=== PATIENT | female | born 1960 | race Caucasian/White ===

== ENCOUNTER → 2019-05-06 10:52 | Outpatient (CLI) | payer OTHER, SELFPAY ==
--- NOTE | ~2019-05-06 | MM_ITS ---
EXAMINATION: MM screening [facility] BI w ruthann HISTORY: Screening mammogram TECHNIQUE: Craniocaudal and mediolateral oblique 3-D tomosynthesis images were obtained and synthetic 2-D images were generated. CAD analysis was submitted and interpreted. COMPARISON: 01/13/2018, 04/17/2016, 03/30/2011 BREAST PARENCHYMAL COMPOSITION: There are scattered areas of fibroglandular density. FINDINGS: Scattered benign-appearing calcifications are present including stable calcifications with an adjacent biopsy marker in the left breast. There is no evidence of suspicious mass, calcification, or architectural distortion to suggest malignancy in either breast. There has been no suspicious int erval change. IMPRESSION: 1. No mammographic evidence of malignancy. 2. Recommend routine screening mammography in one year. BI-RADS Category 2: Benign finding(s). Reviewed, dictated and finalized at location A.
--- NOTE | ~2019-05-06 | DEXA_ITS ---
Bone Density Report Name: Ashley Catalan Age: 59 Sex: Female Ethnicity: White Date of : 1960 Indication: postmenopausal; screening for osteoporosis; Referring Provider: MIGNON, JOHANA Garza Study: Bone densitometry was performed. Exam Date: May 06, 2019 Accession number: [id number] Bone Density: Region BMD T-score Z-score Classification AP Spine (L1, L2, L4) 1.084 0.5 1.8 Normal Femoral Neck (Left) 0.853 0.0 1.3 Normal Total Hip (Left) 0.995 0.4 1.3 Normal Femoral Neck (Right) 0.848 0.0 1.2 Normal Total Hip (Right) 0.972 0.2 1.1 Normal Total Hip Mean 0.984 0.3 1.2 Normal World Health Organization criteria for BMD impression classify patients as: Normal (T-score at or above -1.0), Osteopenia (T-score between -1.0 and -2.5), or Osteoporosis (T-score at or below -2.5). 10-year Fracture Risk: FRAX not reported because: All T-scores for Spine Total, Hip Total, Femoral Neck at or above -1.0 Clinical Information Provided by Patient: Has used the following medications: Vitamin D, Calcium Patient maximum height was 62.5 Menopause Age: 49 Drinks caffeinated beverages Onset of menses at age 9 Number of children 0 Impression: The patient has normal bone mass. Discussion: BONE DENSITY IS ABOVE THE MINIMUM DESIRABLE LEVEL AT ALL SKELETAL SITES TESTED. This patient?s bone mineral density is above the minimum desirable level (T-score -1.0 or better) at all sites measured. The patient should follow a healthful lifestyle (good nutrition with adequate calcium and vitamin D, and appropriate weight-bearing exercise). Follow-Up: Consider repeating this study in 5 years or sooner if there is some new clinical indication. Reported by: [facility] on 05/06/2019 12:24:00 PM. Reviewed, dictated and finalized at location AArturo ROJAS
== END ==
PROVIDERS: PCP Internal Medicine; Visit Provider Obstetrics & Gynecology
DX: Z12.31 Encounter for screening mammogram for malignant neoplasm of breast (principal); Z13.820 Encounter for screening for osteoporosis; Z78.0 Asymptomatic menopausal state
CPT/HCPCS: 77063; 77067; 77080

== ENCOUNTER → 2019-08-29 10:10 | Outpatient (CLI) | payer OTHER, SELFPAY ==
--- NOTE | ~2019-08-29 | US_ITS ---
EXAMINATION: US pelvic complete w TV DATE: 08/29/2019 10:42 INDICATION: Postmenopausal bleeding TECHNIQUE: Multiple transabdominal and endovaginal sonographic images of the pelvis were obtained. COMPARISON: None. FINDINGS: The uterus measures 7.6 x 4.7 x 5.3 cm. There is a 2.1 x 1.8 cm isoechoic mass of the uteri ne fundus which has the appearance of a submucosal fibroid. A second similar appearing 1.9 x 1.8 cm m ass also has the appearance of a submucosal fibroid. The endometrial complex measures 6 mm. The right ovary measures 2.2 x 1.8 x 2.5 cm. The left ovary measures measures 3.0 x 1.9 x 2.1 cm. There is a 1 .8 x 1.5 x 1.4 cm isoechoic lesion of the left ovary. There is normal vascular flow in the ovaries. T here is no free fluid in the pelvis. IMPRESSION: 1. Uterine fibroids. 2. Isoechoic lesion of the left ovary which could represent a hemorrhagic cyst or endometrioma. Follo w-up ultrasound in 6-12 weeks is recommended. Reviewed, dictated and finalized at location A. IMPRESSION: 1. Uterine fibroids. 2. Isoechoic lesion of the left ovary which could represent a hemorrhagic cyst or endometrioma. Follow-up ultrasound in 6-12 weeks is recommended.
== END ==
PROVIDERS: PCP Internal Medicine; Visit Provider Obstetrics & Gynecology
DX: N95.0 Postmenopausal bleeding (principal); D25.9 Leiomyoma of uterus, unspecified
CPT/HCPCS: 76830; 76856

== ENCOUNTER → 2020-07-23 13:23 | Outpatient (CLI) | payer OTHER, SELFPAY ==
--- NOTE | ~2020-07-23 | MM_ITS ---
EXAMINATION: MM screening [facility] BI w ruthann HISTORY: Screening mammogram TECHNIQUE: Craniocaudal and mediolateral oblique 3-D tomosynthesis images were obtained and synthetic 2-D images were generated. CAD analysis was submitted and interpreted. COMPARISON: 05/06/2019, 01/13/2018, 04/17/2016 bilateral digital screening mammogram examinations BREAST PARENCHYMAL COMPOSITION: There are scattered areas of fibroglandular density. FINDINGS: There is a biopsy marker on the left; history of prior benign left breast biopsy in 2010. Multiple scattered bilateral benign appearing calcifications. There is no evidence of suspicious mass , calcification, or architectural distortion to suggest malignancy in either breast. There has been n o suspicious interval change. IMPRESSION: 1. No mammographic evidence of malignancy. 2. Recommend routine screening mammography in one year. BI-RADS Category 2: Benign finding(s). Reviewed, dictated and finalized at location A.
== END ==
PROVIDERS: PCP Internal Medicine; Visit Provider Obstetrics & Gynecology
DX: Z12.31 Encounter for screening mammogram for malignant neoplasm of breast (principal)
CPT/HCPCS: 77063; 77067

== ENCOUNTER → 2022-05-13 14:03 | Outpatient (CLI) | payer OTHER, SELFPAY ==
--- NOTE | ~2022-05-13 | MM_ITS ---
EXAMINATION: MM screening [facility] BI w ruthann HISTORY: Screening mammogram TECHNIQUE: Craniocaudal and mediolateral oblique 3-D tomosynthesis images were obtained and synthetic 2-D images were generated. CAD analysis was submitted and interpreted. COMPARISON: 07/23/2020, 05/06/2019, 01/13/2018 bilateral screening mammogram examinations BREAST PARENCHYMAL COMPOSITION: There are scattered areas of fibroglandular density. FINDINGS: Biopsy marker on the left. History of benign left breast biopsy. Scattered bilateral breast benign calcifications There is no evidence of suspicious mass, calcification, or architectural disto rtion to suggest malignancy in either breast. There has been no suspicious interval change. IMPRESSION: 1. No mammographic evidence of malignancy. 2. Recommend routine screening mammography in one year. BI-RADS Category 2: Benign finding(s). Reviewed, dictated and finalized at location A.
== END ==
PROVIDERS: PCP Internal Medicine; Visit Provider Physician Assistant
DX: Z12.31 Encounter for screening mammogram for malignant neoplasm of breast (principal)
CPT/HCPCS: 77063; 77067

== ENCOUNTER 2024-04-25 07:32 | Outpatient (CLI) | payer BC, SELFPAY ==
--- NOTE | ~2024-04-25 | MM_ITS ---
EXAMINATION: MM screening naldo BI w ruthann HISTORY: Screening mammogram TECHNIQUE: Craniocaudal and mediolateral oblique 3-D tomosynthesis images were obtained and synthetic 2-D images were generated. CAD analysis was submitted and interpreted. COMPARISON: 05/13/2022, 07/23/2020, 05/06/2019 BREAST PARENCHYMAL COMPOSITION:Not Dense. There are scattered areas of fibroglandular density. FINDINGS: Extensive bilateral benign calcifications are present. No suspicious mass, calcification, o r architectural distortion are identified in either breast to suggest malignancy. There has been no s uspicious interval change. IMPRESSION: No mammographic evidence of malignancy. Recommend routine screening mammography in one year. BI-RADS Category 2: Benign finding(s). Reviewed, dictated and finalized at location . 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
--- OUTSIDE RECORDS SUMMARY | 2024-04-25 07:37 | XMS_ITS | Referral Summary ---
Author Organization [facility] Address [address] [place] [id number] Care Team Providers Care Property Supervisor Name Role Phone Unknown, Notinfile Primary Care Provider Unavail able Allergies Active Allergy Reactions Criticality Noted Date Comments Amoxicillin Rash Medium 12/19/2023 Medications lidocaine (LIDODERM) 5 %Indications:Pa in Place 1 patch on the skin daily Use patch for 12 hours on, 12 hours off. Discard after each use 7 patch 12/19/2023 Active cyclobenzaprine (FLEXERIL) 10 mg tablet Take 1 tablet (10 mg total) by mouth 3 (three) times a day as needed for muscle spasms for up to 20 doses 20 tablet 12/19/2023 Active Social History Tobacco Use Types Packs/Day Years Used Date Smoking Tobacco: Never Assessed Personal Safety Answer Date Recorded Have you ever been in or are you currently in a harmful physical or emotional relationship or is someone making you feel afraid or unsafe? 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 Gender Identity Not on file Sexual Orientation Not on file Last Filed Vital Signs Vital Sign Reading Time Taken Comments Blood Pressure 110/62 12/19/2023 6:00 PM CDT Pulse 91 12/19/2023 6:00 PM CDT Temperature 36.9 C (98.4 F) 12/19/2023 1:19 PM CDT Respiratory Rate 16 12/19/2023 6:00 PM CDT Oxygen Saturation 92% 12/19/2023 6:00 PM CDT Inhaled Oxygen Concentration - - Weight 97 kg (213 lb 13.5 oz) 12/19/2023 1:19 PM CDT Height 157.5 cm (5' 2 ) 12/19/2023 1:19 PM CDT Body Mass Index 39.11 12/19/2023 1:19 PM CDT Plan of Treatment Not [place] [phone] [facility] [place] [phone] Care Teams Property Supervisor Relationship Specialty Start Date End Date Unknown, Notinfile PCP - General 12/19/23
--- OUTSIDE RECORDS SUMMARY | 2024-04-25 07:37 | XMS_ITS | Clinical Summary ---
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 Gender Identity Not on file Sexual Orientation [...] 12/19/2023 1:19 PM CDT Plan of Treatment Health Maintenance Due Date Last Done Comments Cervical Cancer Screening 1960 Colon Cancer Screening-Colonoscopy 1960 Depression Screening 1960 Hepatitis C Screening 1960 DTaP/Tdap/Td Vaccine (1 - Tdap) 01/31/1971 Hepatitis B Screening 01/31/1978 Regular Well Visit/Exam 18-64 01/31/1978 Zoster Vaccine (1 of 2) 01/31/2010 Breast Cancer Screening-Mammogram 05/15/2023 05/14/2022, 07/23/2020, 05/08/2019 Influenza Vaccine (#1) 2023 , 04/11/2018, 11/19/2016 Pneumococcal vaccine <65 Aged Out No longer eligible based on patient's age to complete this topic Insurance [facility] CHOICE PLUS MRA [address] [place] [address] Care Teams Infantry Senior Sergeant Relationship Specialty Start Date End Date Unknown, Notinfile PCP - General 12/19/23
--- OUTSIDE RECORDS SUMMARY | 2024-04-25 07:38 | XMS_ITS | Data Portability ---
Author Organization [facility] KIMJarret Lou Address [address] [place] [address] Care Team Providers Care Patient Registration Supervisor Name Role Phone FLORENCE PRITCHARD Geophysical Manager Unavailable Assessment Encounter Date Assessment Date Assessment LastModified by Organization Details LastModified Time 07/01/2020 07/01/2020 MIRIAN Sharma mwasserman Not available 07/01/2020 12:16:38 11/05/2021 11/05/2021 SARAH Thorne Not available 11/05/2021 13:48:19 Plan of Treatment Reminders Order Date Submit Date Provider Last Modified By Organization Details Last Modified Time Details Appointments None recorded . Lab noninvas yany colorect al cancer DNA + occult blood screenin g, stool 2020 021 [facility] (Cologuard Orders Only), [address], [address], [place], [address], 1 01:14:43 pap, IG + HPV, cervical - please use Z11.51 in addition to code above for HPV testing. 2019 020 [facility], [address], [address], [place], [address], 0 14:09:46 urinalys is, dipstick 2019 020 cherrie In-Office Order, Internal Use Only DO Not Attach Compendium DO Not Attach Compendium, Do Not Delete/merge, [id number] 0 10:50:50 culture, urine 2019 020 [facility], [address], [address], [place], [address], 0 06:23:17 bacteria l vaginosi s panel, vaginal 2019 020 [facility] (Centralized Electronic Ordering - All Locations), Patient Can Go To The Location Of Their Choice, [facility] 0 07:07:07 culture, vaginal/ rectal, streptoc occus group B 2019 020 [facility] (Centralized Electronic Ordering - All Locations), Patient Can Go To The Location Of Their Choice, [id number] 0 07:07:07 Referral None recorded . Procedures None recorded . Surgeries None recorded . Imaging MAMMO, screenin g, bilatera l 2021 022 [facility], [address], [place], [address], 3 10:48:15 MAMMO, screenin g, bilatera l 2020 021 [facility], [address], [place], [address], 1 16:56:32 DEXA 2020 021 [facility], [address], [place], [address], 1 11:42:40 US, pelvis, transabd ominal + transvag inal 2019 020 [facility], [address], [place], [address], 0 08:34:34 MAMMO, screenin g, bilatera l 2019 020 [facility], [address], [place], [address], 0 12:05:01 DEXA 2019 020 [facility], [address], [place], [address], 0 14:17:57 Medication Orders Premarin 0.625 mg/gram vaginal cream [address] [facility], [address] [place], [address], 3 16:28:57 Premarin 0.625 mg/gram vaginal cream 2021 022 [facility], [address] [place] [address], [id number], 2 12:21:30 multivit kuo tablet 2020 021 [facility], [address] [place], [address], 2 11:19:38 Calcium with Vitamin D 600 mg-10 mcg (400 unit) tablet 2020 021 [facility], [address] [place], [address], 2 11:21:03 Osphena 60 mg tablet [address] [facility], [address] [place], [address], 2 12:17:27 Premarin 0.625 mg/gram vaginal cream 2020 021 [facility], [address] [place] [address], [id number], 1 12:11:29 Osphena 60 mg tablet 2019 020 [email or web address], [address] [facility], [place], [address], 12:17:27 Patient TargetsNo targets recorded. Patient Instructions Encounter Date Encounter Id Patient Instructions Last Modified By Organization Details Last Modified Time 03/22/2019 [id number] mammogram: about this test mwasserman Not available 03/22/2019 10:50:50 mammogram: about this test mwasserman Not available 03/22/2019 10:50:49 mammogram screening patient instructions mwasserman Not available 03/22/2019 10:50:49 atrophic vaginitis: care instructions mwasserman Not available 03/22/2019 10:50:50 08/16/2019 [id number] Quitting Tobacco: Care Instructions mwasserman Not available 08/16/2019 17:17:55 vaginal bleeding after menopause: care instructions mwasserman Not available 08/16/2019 17:11:55 07/01/2020 [id number] mammogram: about this test mwasserman Not available 07/01/2020 11:52:55 mammogram screening patient instructions mwasserman Not available 07/01/2020 11:52:55 A healthy lifestyle: care instructions mwasserman Not available 07/01/2020 12:17:11 11/05/2021 [id number] learning about breast cancer screening Not available 11/05/2021 11:55:[address] Kacie mojica Not available 11/10/2021 17:15:43 Reason for Referral None Reported. Results Created Date Observation Date Name Description Value Unit Range Abnormal Flag Note LastModifiedBy Organization Detail LastModifiedTime 03/22/19 20 03/24/2019 cultu re, urine urine culture, routine Final report abnormal Not Available [facility] ([facility]) [address] [facility], [place], [address], 03/24/2019 06:23:17 03/22/19 20 03/24/2019 cultu re, urine result 1 Commen t abnormal Beta hemol ytic Strep tococ cus, group B 10,00 0-25, 000 colon y formi ng units per mL Penic illin and ampic illin are drugs of choic e for treat ment of beta- hemol ytic strep tococ sylvester infec tions . Susce ptibi lity testi ng of penic illin s and other beta- lacta m agent s appro constacne by the FDA for treat ment of beta- hemol ytic strep tococ sylvester infec tions need not be perfo rmed routi layla becau se nonsu scept ible isola angelique are extre darcy rare in any beta- hemol ytic strep tococ cus and have not been repor julia for Strep tococ cus pyoge chang (grou p A). (CLSI ) Not Available [facility] ([facility]) [address] [facility], [place], [address], 03/24/2019 06:23:17 03/22/19 20 03/23/2019 pap, IG + HPV, cervi sylvester HPV aptima Negati ve negati ve This nucle ic acid ampli ficat ion test detec ts fourt een high- risk HPV types (16,1 8,31, 33,35 ,39,4 5,51, 52,56 ,58,5 9,66, 68) witho ut diffe renti ation . Not Available [facility] ([facility]) [address] [facility], [place], [address], 03/24/2019 14:09:46 03/22/19 20 03/24/2019 pap, IG + HPV, cervi sylvester diagnosis: Commen t NEGAT YANY FOR INTRA EPITH ELIAL LESMAHAD Rankin OR ISSAC MARIN . Not Available [facility] ([facility]) [address] [place], [address], 03/24/2019 14:09:46 03/22/1903/24/2019 pap, IG + HPV, cervi sylvester specimen adequacy: Commen t Satis facto ry for evalu ation . Endoc ervic al and/o r squam ous metap lasti c cells (endo cervi sylvester compo nent) are prese nt. Areas of parti ally obscu ring infla mmato ry exuda te are prese nt. Not Available [facility] ([facility]) [address] [facility], [place], [address], 03/24/2019 14:09:46 03/22/19 20 03/24/2019 pap, IG + HPV, cervi sylvester clinician provided ICD10: Adrián elmore Z01.4 19 Z11.5 1 Not Available [facility] ([facility]) [address] [facility], [place], [address], 03/24/2019 14:09:46 03/22/19 20 03/24/2019 pap, IG + HPV, cervi sylvester performed by: Pamela Peterson (ASCP ) Not Available [facility] ([facility]) [address] [facility], [place], [address], 03/24/2019 14:09:46 03/22/19 20 03/24/2019 pap, IG + HPV, cervi sylvester . . Not Available [facility] ([facility]) [address] [place], [address], 03/24/2019 14:09:46 03/22/19 20 03/24/2019 pap, IG + HPV, cervi sylvester note: Adrián elmore The Pap smear is a scree bright test desig chaim to aid in the detec tion of rosio ligna nt and malig nant condi tions of the uteri ne cervi x. It is not a diagn ostic proce dure and shoul d not be used as the sole means of detec ting cervi sylvester cance r. Both false -posi tive and false -nega tive repor ts do occur . Not Available [facility] ([facility]) [address] [facility], [place], [address], 03/24/2019 14:09:46 03/22/19 20 03/24/2019 pap, IG + HPV, cervi sylvester test methodology: Adrián elmore This liqui d based ThinP rep(R ) pap test was scree chaim with the use of an image guide d tiara m. Not Available [facility] ([facility]) [address] [place], [address], 03/24/2019 14:09:46 03/22/19 20 03/26/2019 bacte rial vagin osis panel , vagin al trich vag by JOVANNY Negati ve negati ve Not Available [facility] ([facility]) [address] [place], [address], 03/27/2019 07:07:07 03/22/19 20 03/26/2019 bacte rial vagin osis panel , vagin al chlamydia trachomatis, JOVANNY Negati ve negati ve Not Available [facility] ([facility]) [address] [facility], [place], [address], 03/27/2019 07:07:07 03/22/19 20 03/26/2019 bacte rial vagin osis panel , vagin al neisseria gonorrhoeae, JOVANNY Negati ve negati ve Not Available [facility] ([facility]) [address] [place], [address], 03/27/2019 07:07:07 03/22/19 20 03/26/2019 bacte rial vagin osis panel , vagin al hsv 1 JOVANNY Negati ve negati ve Not Available [facility] ([facility]) [address] [place], [address], 03/27/2019 07:07:07 03/22/19 20 03/26/2019 bacte rial vagin osis panel , vagin al hsv 2 JOVANNY Negati ve negati ve Not Available [facility] ([facility]) [address] [place], [address], 03/27/2019 07:07:07 03/22/19 20 03/27/2019 bacte rial vagin osis panel , vagin al atopobium vaginae Low - 0 score Not Available [facility] ([facility]) [address] [facility], [place], [address], 03/27/2019 07:07:07 03/22/19 20 03/27/2019 bacte rial vagin osis panel , vagin al bvab 2 Low - 0 score Not Available [facility] ([facility]) [address] [facility], [place], [address], 03/27/2019 07:07:07 03/22/19 20 03/27/2019 bacte rial vagin osis panel , vagin al megasphaera 1 Low - 0 score Calcu late total score by deon dejesus the 3 indiv idual bacte rial vagin osis (BV) marke r score s toget her. Total score is inter prete d as follo ws: Total score 0-1: Indic ates the absen ce of BV. Total score 2: Indet ermin ate for BV. Addit ional clini sylvester data shoul d be evalu ated to estab raza a diagn osis. Total score 3-6: Indic ates the prese nce of BV. This test was devel oped and its perfo rmanc e teodoro cteri stics deter mined by [facility]. It has not been clear ed or appro constance by the Food and Drug Admin istra tion. The FDA has deter mined that such clear ance or appro anjana is not neces pierce. Not Available [facility] ([facility]) [address] [facility], [place], [address], 03/27/2019 07:07:07 03/22/1903/27/2019 bacte rial vagin osis panel , vagin al sugar albicans, JOVANNY Negati ve negati ve Not Available [facility] ([facility]) [address] [place], [address], 03/27/2019 07:07:07 03/22/19 20 03/27/2019 bacte rial vagin osis panel , vagin al sugar glabrata, JOVANNY Negati ve negati ve Not Available [facility] ([facility]) [address] [facility], [place], [address], 03/27/2019 07:07:07 03/22/19 20 03/24/2019 cultu re, vagin al/re ctal, strep tococ cus group B strep gp B JOVANNY Positi ve negati ve abnormal [facility] rs [facility] Disea se Contr ol and Preve ntion ([facility]) and Ameri can Congr ess of Obste trici ans and Gynec ologi sts (ACOG ) guide lines for preve ntion of perin atal group B strep tococ sylvester (GBS) disea se speci fy co-co llect ion of a vagin al and recta l swab speci men to maxim ize sensi tivit y of GBS detec tion. Per the [facility] and ACOG, swabb ing both the lower vagin a and rectu m subst antia lly incre ases the yield of detec tion hellen red with sampl ing the vagin a alone . Penic illin G, ampic illin , or cefaz katia are indic ated for intra partu m proph ylaxi s of perin atal GBS colon izati on. Refle x susce ptibi lity testi ng shoul d be perfo rmed prior to use of clind amyci n only on GBS isola angelique from penic illin -maine rgic women who are consi dered a high risk for anaph ylaxi s. Treat ment with vanco mycin witho ut addit ional testi ng is warra nted if resis tance to clind amyci n is noted . Not Available [facility] ([facility]) [address] [facility], [place], [address], 03/27/2019 07:07:07 03/22/19 20 03/22/2019 urina lysis , dipst ick Leukocytes Trace Not Available In-Offi ce Order Internal Use Only DO Not Attach Compendium DO Not Attach Compendium, Do Not Delete/merge, [id number] 03/22/2019 10:20:43 03/22/19 20 03/22/2019 urina lysis , dipst ick Nitrite negati ve Not Available In-Office Order Internal Use Only DO Not Attach Compendium DO Not Attach Compendium, Do Not Delete/merge, 03/22/2019 10:20:43 03/22/19 20 03/22/2019 urina lysis , dipst ick Urobilinogen .2 Not Available In-Of fice Order Internal Use Only DO Not Attach Compendium DO Not Attach Compendium, Do Not Delete/merge, 03/22/2019 10:20:43 03/22/1903/22/2019 urina lysis , dipst ick Protein Negati ve Not Available In-Office Order Internal Use Only DO Not Attach Compendium DO Not Attach Compendium, Do Not Delete/merge, 03/22/2019 10:20:43 03/22/1903/22/2019 urina lysis , dipst ick pH 5.5 Not Available In-Office Order Internal Use Only DO Not Attach Compendium DO Not Attach Compendium, Do Not Delete/merge, 03/22/2019 10:20:43 03/22/1903/22/2019 urina lysis , dipst ick Blood Negati ve Not Available In-Office Order Internal Use Only DO Not Attach Compendium DO Not Attach Compendium, Do Not Delete/merge, 03/22/2019 10:20:43 03/22/19 20 03/22/2019 urina lysis , dipst ick Specific [place] 1.015 Not Available In-Off ice Order Internal Use Only DO Not Attach Compendium DO Not Attach Compendium, Do Not Delete/merge, 03/22/2019 10:20:43 03/22/19 20 03/22/2019 urina lysis , dipst ick Ketone Negati ve Not Available In-Office Order Internal Use Only DO Not Attach Compendium DO Not Attach Compendium, Do Not Delete/merge, 03/22/2019 10:20:43 03/22/1903/22/2019 urina lysis , dipst ick Bilirubin Negati ve Not Available In-Office Order Internal Use Only DO Not Attach Compendium DO Not Attach Compendium, Do Not Delete/merge, 03/22/2019 10:20:43 03/22/1903/22/2019 urina lysis , dipst ick Glucose 500 Not Available In-Office Order Internal Use Only DO Not Attach Compendium DO Not Attach Compendium, Do Not Delete/merge, [id number] 03/22/2019 10:20:43 07/11/19 21 07/10/2020 nonin vasiv e color ectal cance r DNA + occul t blood scree bright, stool cologuard result reportable POSITI VE not applic able abnormal It is recom radha d that a posit yany Colog uard scree n be clini kieran corre lated and follo wed-u p with a struc tural exami natio n of the colon such as diagn ostic colon oscop y. Colon oscop ies perfo rmed for a posit yany Colog uard may find as the most clini kieran signi fican t lesio n: color ectal cance r [4.0% ], advan maximiliano adeno ma (incl uding sessi le [place] julia polyp s great er than or equal to 1cm diame ter) [20%] or non- advan maximiliano adeno ma [31%] ; or no color ectal neopl carmen [45%] . These estim ates are deriv ed from a prosp ectiv e cross -sect ional scree bright study of 10,00 0 indiv idual s at [facility] risk for color ectal cance r who were scree chaim with both Colog uard and colon oscop y. (Tabl e 3, Imper randall T. et al, N Engl J Med 2014; 370(1 4):12 86-12 97.) The michael l value (refe rence range ) for this assay is negat yany. TEST TYPE: [place] site algor ithmi c nelly sis of stool DNA-b iomar kers with hemog lobin immun oassa y. Quant itati ve value s of indiv idual bioma rkers are not repor table and are not assoc iated with indiv idual bioma rker resul t refer ence range s. PRECA UTION S AND LIMIT ATION S: Colog uard is inten ded for color ectal cance r scree bright of adult s of eithe r sex, 45 years or older , who are at [facility] for color ectal cance r (CRC) . Colog uard has been appro constance for use by the U.[place]. FDA. Colog uard may produ ce a false negat yany or false posit yayn resul t. A negat yany Colog uard test resul t does not guara ntee the absen ce of CRC or advan maximiliano adeno ma (pre- cance r). Patie nts with a negat yany Colog uard test resul t shoul d be advis ed to renetta nue parti cipat ing in a color ectal cance r scree bright progr am. The scree bright inter anjana for Colog uard is curre ntly recom radha d at an inter anjana of every 3 years by the Ameri can Cance r Socie ty and U.S. Multi -Soci ety Task Force . A false posit yany resul t occur s when Colog uard produ raji a posit yany resul t, even thoug h a colon oscop y may not find color ectal cance r or preca ncero us polyp s. The perfo rmanc e of Colog uard has been estab lishe d in a cross secti onal study (i.e. , singl e point in time) of [facility] adult s aged 50-84 . Colog uard perfo rmanc e in patie nts ages 45 to 49 years was estim ated by sub-g roup nelly sis of near- age group s. Colog uard perfo rmanc e data in a 10,00 0 [facility] nt pivot al study using colon oscop y as the refer ence metho d can be acces sed at the [employer] wing locat ion: www.e xactl abs.c om/re sults . Addit ional descr iptio n of the Colog uard test proce ss, warni ngs and preca ution s can be found at www.c [address] [facility].co m. Rx only. Not Available [facility] (Cologu[facility] Orders Only) [address], [place], [address], 07/17/2020 01:14:42 05/08/19 20 05/06/2019 MAMMO , scree bright, bilat eral No observ ation record ed. [facility] [address], [place], [address], 05/17/2019 20:26:22 05/12/19 20 05/06/2019 DEXA No observ ation record ed. robert [facility] [address], [place], [address], 09/08/2019 10:12:05 08/30/19 20 08/29/2019 US, pelvi s, trans abdom inal + trans vagin al No observ ation record ed. robert [facility] [address], [place], [address], 09/08/2019 14:35:59 11/03/19 20 10/30/2019 US, pelvi s No observ ation record ed. [email or web address] Not Available 11/05 09:50:36 07/24/19 21 07/23/2020 MAMMO , scree bright, bilat eral No observ ation record ed. [email or web address] [facility] [address], [place], [address], 11/05/2021 11:31:12 07/24/19 21 07/23/2020 MAMMO , scree bright, bilat eral No observ ation record ed. [email or web address] [facility] [address], [place], [address], 11/05/2021 11:31:12 05/15/19 23 05/13/2022 MAMMO , scree bright, bilat eral No observ ation record ed. [email or web address] [facility] [address], [place], [address], 05/20/2022 15:49:32 Result Notes None recorded. 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 0 11:16:34 Colorectal cancer detected by DNA-based stool screening 448503560 Active 2020 Crow byrnes, [facility] 1 08:08:33 Atrophic vaginitis 44554557 Active Gaurav byrnes, [facility] 6 12:58:43 Problem Notes None recorded. Procedures Surgical History Date Name Laterality Status Provider Name and Address Organization Details Recorded Time 1 Date of Last Mammogram completed Nila Phelps MA [facility] 11/05/2021 11:16:57 0 Most Recent Mammogram completed Nila Phelps MA [facility] 08/16/2019 17:06:24 0 Date of Last Pap Smear completed Nila Phelps MA [facility] 08/16/2019 17:06:11 Dilation and Curettage completed Nadira Costa MA [facility] 09/12/2015 15:16:42 Dilation and Curettage completed Nadira Costa MA [facility] 09/12/2015 15:16:42 Imaging Results Imaging Date Name Status LastModified by Organization Details LastModified Time 05/06/2019 MAMMO, screening, bilateral completed L[facility]I [facility] [address], [place], [address], 05/17/2019 20:26:22 05/06/2019 DEXA completed robert [facility] [address], [place], [address], 09/08/2019 10:12:05 08/29/2019 US, pelvis, transabdominal + [email or web address] [address], [place], [address], 09/08/2019 14:35:59 10/30/2019 US, pelvis completed Information no t available 11/06/2019 09:50:36 07/23/2020 MAMMO, screening, bilateral completed [email or web address] [facility] [address], [place], [address], 11/05/2021 11:31:12 07/23/2020 MAMMO, screening, bilateral completed [email or web address] [facility] [address], [place], [address], 11/05/2021 11:31:12 05/13/2022 MAMMO, screening, bilateral completed [email or web address] [facility] [address], [place], [address], 05/20/2022 15:49:32 Procedure Notes None recorded. Medical Equipment None Reported. Allergies Allergen ID Allergen Name Allergen Category Reaction Reaction Severity Criticality Documentation Date Start Date Code Code System Note Provider Name and Address Organization Details Recorded Time 25854 amoxicill in medicatio n itching moderate Not available 10/02/2014 723 RxNorm Not Available Not Available Not Available Medications Name Sig Start Date Stop Date Status Note LastModified by Organization Details LastModified Time trulicity 1.5 mg/0.5ml sopn 07/01 completed Not Available Not Available Not Available valacyclovi r hcl 1 gm tabs 07/01 completed Not Available Not Available Not Available metformin hydrochlori de 1000 mg tabs active Not Available Not Available Not Available glimepiride 4 mg tabs 07/01 completed Not Available Not Available Not Available lisinop/hct z tab 20-12.5 11/05 completed Not Available Not Available Not Available temazepam 15 mg caps active Not Available Not Available N ot Available osphena 60 mg tabs 11/05 completed Not Available Not Available Not Available escitalopra m oxalate 10 mg tabs 07/01 completed Not Available Not Available Not Available clonazepam 0.5 mg tabs 07/01 completed Not Available Not Available Not Available simvastatin 20 mg tabs 11/05 completed Not Available Not Available Not Available azithromyci n 250 mg tabs 08/15 completed Not Available Not Available Not Available multivitami n tablet Take 1 tablet every day by oral route. 11/05 completed Not Available Not Available Not Available metformin 500 mg tablet 08/15 completed Not Available Not Available Not Available doxycycline hyclate 100 mg capsule 11/05 completed Not Available Not Available Not Available atorvastati n 20 mg tablet active Not Available Not Available Not Available lisinopril 20 mg-hydrochl orothiazide 12.5 mg tablet TAKE 1 TABLET BY MOUTH ONCE DAILY active Not Available Not Available No t Available azithromyci n 250 mg tablet TAKE 2 TABLETS BY MOUTH ON DAY 1, AND THEN TAKE 1 TABLET BY MOUTH ONCE A DAY ON DAY 2 THROUGH DAY 5 11/05 completed Not Available Not Available Not Available fluconazole 150 mg tablet TAKE 1 TABLET BY MOUTH TWICE DAILY 11/05 completed Not Available Not Available Not Available benzonatate 200 mg capsule 08/15 completed Not Available Not Available Not Available valacyclovi r 1 gram tablet TAKE 1 TABLET BY MOUTH ONCE DAILY active Not Available Not Available No t Available clonazepam 0.5 mg tablet TAKE 1 TABLET BY MOUTH THREE TIMES DAILY NEEDED FOR ANXIETY active Not Available Not Available No t Available promethazin e 6.25 mg-codeine 10 mg/5 mL syrup 08/15 completed Not Available Not Available Not Available sulfamethox azole 800 mg-trimetho prim 160 mg tablet TAKE 1 TABLET BY MOUTH EVERY 12 HOURS FOR 5 DAYS 07/01 completed Not Available Not Available Not Available glimepiride 2 mg tablet 08/15 completed Not Available Not Available Not Available amitriptyli ne 25 mg tablet TAKE 1 TABLET BY MOUTH ONCE DAILY AT BEDTIME active Not Available Not Available No t Available temazepam 15 mg capsule TAKE 1 CAPSULE BY MOUTH ONCE DAILY AT BEDTIME active Not Available Not Available No t Available benzonatate 100 mg capsule 07/01 completed Not Available Not Available Not Available simvastatin 20 mg tablet TAKE 1 TABLET BY MOUTH ONCE DAILY 11/05 completed Not Available Not Available Not Available metformin 1,000 mg tablet TAKE 1 TABLET BY MOUTH TWICE DAILY active Not Available Not Available No t Available Alrex 0.2 % eye drops,suspe nsion 08/15 completed Not Available Not Available Not Available glimepiride 4 mg tablet TAKE 1 TABLET BY MOUTH TWICE DAILY active Not Available Not Available No t Available methylpredn isolone 4 mg tablets in a dose pack 08/15 completed Not Available Not Available Not Available ketoconazol e 2 % topical cream APPLY TO NAILS ONCE DAILY 11/05 completed Not Available Not Available Not Available ondansetron 4 mg disintegrat ing tablet 08/15 completed Not Available Not Available Not Available escitalopra m 10 mg tablet TAKE 1 TABLET BY MOUTH ONCE DAILY active Not Available Not Available No t Available Restasis 0.05 % eye drops in a dropperette 08/15 completed Not Available Not Available Not Available Premarin 0.625 mg/gram vaginal cream active Not Available Not Available Not Available Januvia 50 mg tablet TAKE 1 TABLET BY MOUTH ONCE DAILY active Not Available Not Available No t Available Calcium with Vitamin D 600 mg-10 mcg (400 unit) tablet Take 1 tablet twice a day by oral route. 11/05 completed Not Available Not Available Not Available Tradjenta 5 mg tablet TAKE 1 TABLET BY MOUTH ONCE DAILY active Not Available Not Available No t Available OneTouch Verio test strips 08/15 completed Not Available Not Available Not Available Invokana 100 mg tablet TAKE 1 TABLET BY MOUTH ONCE DAILY 11/05 completed Not Available Not Available Not Available Osphena 60 mg tablet TAKE 1 TABLET BY MOUTH ONCE DAILY 11/05 completed Not Available Not Available Not Available Farxiga 10 mg tablet TAKE 1 TABLET BY MOUTH ONCE DAILY 11/05 completed Not Available Not Available Not Available Jardiance 10 mg tablet TAKE 1 TABLET BY MOUTH ONCE DAILY 11/05 completed Not Available Not Available Not Available Trulicity 1.5 mg/0.5 mL subcutaneou s pen injector INJECT 1.5 MG SUBCUTANE OUSLY ONCE A WEEK 05/05 completed Not Available Not Available Not Available Trulicity 0.75 mg/0.5 mL subcutaneou s pen injector 08/15 completed Not Available Not Available Not Available Trulicity 3 mg/0.5 mL subcutaneou s pen injector INJECT 3 MG SUBCUTANE OUSLY ONCE A WEEK active Not Available Not Available No t Available Vitals Date Recorded Body weight Systolic blood pressure Diastolic blood pressure Provider Name and Address Organization Details Last Updated DateTime 03/22/2019 70176.29 g 130 mm[Hg] 74 mm[Hg] Glen Benavides MA [facility] 03/22/2019 10:20:12 Date Recorded Body height Body mass index (BMI) Body weight Provider Name and Address Organization Details Last Updated DateTime 08/16/2019 157.48 cm 34.2 kg/m2 56574.77 g Nila Phelps MA [facility] 08/16/2019 17:02:26 Date Recorded Body height Body mass index (BMI) Body weight Systolic blood pressure Diastolic blood pressure Provider Name and Address Organization Details Last Updated DateTime 07/01/2020 157.48 cm 34.8 kg/m2 37888.55 g 120 mm[Hg] 76 mm[Hg] Jeanine Burns MA [facility] 1 11:28:36 Date Recorded Body weight Body mass index (BMI) Body height Systolic blood pressure Diastolic blood pressure Provider Name and Address Organization Details Last Updated DateTime 11/05/2021 63995.96 g 35.1 kg/m2 156.21 cm 118 mm[Hg] 66 mm[Hg] Nila Phelps MA [facility] 2 11:23:46 Date Recorded Body height Body mass index (BMI) Body weight Systolic blood pressure Diastolic blood pressure Provider Name and Address Organization Details Last Updated DateTime 05/05/2022 156.21 cm 35.9 kg/m2 77785.33 g 126 mm[Hg] 74 mm[Hg] Nila Phelps MA [facility] 3 16:14:19 Social History Question Answer Notes LastModified by Organizat ion Details LastModified Time Tobacco Smoking Status Former Smoker Nadira Costa MA null, [facility] 09/12/2015 15:16:42 Do You Have An Advance Directive? [email or web address] [id number] Information not available 09/12/2015 What Is Your Level Of Alcohol Consumption? None [email or web address] Information not available 09/12/2015 Is Blood Transfusion Acceptable In An Emergency? Yes [facility] Information not available 09/12/2015 What Is Your Level Of Caffeine Consumption? Heavy Mountain Dew [email or web address] Information not available 07/01/2020 How Much Tobacco Do You Chew? None Information not available 09/12/2015 In The 14 Days Before Symptom Onset, Have You Had Close Contact With A Laboratory-confi rmed COVID-19 While That Case Was Ill? No Information not available 07/01/2020 In The 14 Days Before Symptom Onset, Have You Had Close Contact With A Person Who Is Under Investigation For COVID-19 While That Person Was Ill? No Information not available 07/01/2020 Have You Been To An Area Known To Be High Risk For COVID-19? No Information not available 07/01/2020 Are You Currently Employed? Yes Information not available 09/12/2015 What Type Of Diet Are You Following? REGULAR Information not available 09/12/2015 Do You Or Have You Ever Used E-cigarettes Or Vape? Never Used Electronic Cigarettes Information not available 03/22/2019 Education 12 Information no t available 09/12/2015 What Is The Highest Grade Or Level Of School You Have Completed Or The Highest Degree You Have Received? [id number] Information not available 07/01/2020 What Is Your Occupation? [employer] Information not available 07/01/2020 Have There Been Any Changes To Your Family Or Social Situation? No Information not available 07/01/2020 Live Alone Or With Others? With Others Information not available 09/12/2015 What Was The Date Of Your Most Recent Tobacco Screening? 05/05/2022 Information not available 05/05/2022 How Many Children Do You Have? 0 Information not available 09/12/2015 Performs Monthly Self-breast Exam? Yes Information not available 09/12/2015 Do You Have Any Pets? No Information not available 07/01/2020 Do You Use Protection During Sex? No Information not available 09/12/2015 What Is Your Relationship Status? Information not available 09/12/2015 Do You Use Your Seat Belt Or Car Seat Routinely? Yes Information not available 07/01/2020 Seat Belts Used Routinely Yes Information not available 09/12/2015 Are You Sexually Active? Yes Information not available 09/12/2015 Do You Have Smoke And Carbon Monoxide Detectors In Your Home? Yes Information not available 07/01/2020 At What Age Did You Start Smoking Tobacco? 30 Information not available 09/12/2015 Are You Passively Exposed To Smoke? No Information not available 07/01/2020 Do You Or Have You Ever Used Smokeless Tobacco? Never Used Smokeless Tobacco Information not available 03/22/2019 How Much Tobacco Do You Smoke? 1 PPD Information not available 09/12/2015 General Stress Level Low Information not available 09/12/2015 Do You Use Any Illicit Or Recreational Drugs? No Information not available 07/01/2020 Do You Use Sunscreen Routinely? Yes Information not available 09/12/2015 Has Tobacco Cessation Counseling Been Provided? Yes Information not available 05/05/2022 On What Date Was Tobacco Cessation Counseling Provided? 05/05/2022 Information not available 05/05/2022 How Many Years Have You Smoked Tobacco? 20 Information not available 09/12/2015 Do You Or Have You Ever Used Any Other Forms Of Tobacco Or Nicotine? No Information not available 11/05/2021 Sex: Female Functional Status Question Answer Note LastModified by Organization D etails LastModified Time What is your exercise level? Moderate Information not available 09/12/2015 Mental Status None recorded. Family History Relationship Description Onset Age of this Age Resolved Age Notes LastModified by Organization Details LastModified Time Father Diabetes mellitus Not available 2015 15:16:42 Father Heart disease Not available 2015 15:16:42 Father Hypercholest erolemia Not available 2015 15:16:42 Father Hypertensive disorder Not available 2015 15:16:42 Father Migraine Not available 09/12/2015 15:16:42 Medical History Condition Response High Blood Pressure Y Kidney or Bladder Problems N Thyroid Problems N GI Problems Y Headaches/Migraines N Diabetes Y Muscle, Joint, or Bone Problems Y Seizures/Epilepsy Acid Reflux (GERD) Y High Cholesterol Y Hepatitis N Heart Disease N Osteoporosis N Gynecological History Statement/Question Response Abnormal Pap N Date of Last Mammogram 10/23/2020 On BCP's at Conception? N STIs/STDs Y HPV Vaccine N Most Recent Mammogram 05/06/2019 Age at Menarche 9 Current Control Method Menopause If Post Menopausal, Age at Menopause 52 Sexually Active? Y Menses Monthly N Date of Last Pap Smear 03/22/2019 Sexual Problems? Y Desired Control Method None Obstetrics History GPAL:G 2 P 0 0 2 0 Type Value Multiple Births 0 Full Term 0 Induced 0 Spontaneous 2 Premature 0 Living 0 Ectopics 0 Total 2 Past Encounters Encounter ID Performer Location Encounter Start Date Encounter Closed Date Diagnosis/Indication Diagnosis SNOMED-CT Code Diagnosis ICD10 Code Diagnosis Note [id number] WENDY Hope (Adult Med) [address] [place] [address] 0 09/05/2015 10:54:26 09/05/2015 14:13:23 Atrophic vaginitis 60549955 N95.2 Will re-prescri be medication that Dr. Terrell had prescribed Advised to f/u with Dr. Terrell in 6-8 weeks to discuss if medication is working Discussed risk of unopposed estrogen with patient [id number] Gaurav Macdonald (INCOMING INSPECTOR) [address] [place] [address] 0 09/12/2015 14:50:07 09/16/2015 11:10:34 Atrophic vaginitis 08658027 N95.2 Patient was prescribed Premarin and Osphena by Gracy Hurley. Patient has already had them filled. Advise starting the medication s as prescribed . Follow up in 1 month. [id number] Gaurav Macdonald (INCOMING INSPECTOR) [address] [place] [address] 0 10/25/2015 11:12:26 10/25/2015 14:21:52 Atrophic vaginitis 37371102 N95.2 Patient was prescribed Premarin and Osphena by Gracy Hurley. Patient has already had them filled. Advise starting the medication s as prescribed . Follow up in 1 month. [id number] Crow Macdonald [facility] (INCOMING INSPECTOR) [address] [place] [address] [id number] 0 03/22/2019 09:34:56 03/23/2019 11:16:11 Gynecologic examination 16704469 Z01.419 Atrophic vaginitis 56061 000 N95.2 Screening for osteoporosis 584000617 Z13.820 Screening mammography 24 930776 Z12.31 Exposure t o sexually transmissible disorder 072076542 Z20.2 [id number] Crow Macdonald (INCOMING INSPECTOR) [address] [place] [id number] 0 08/16/2019 09:54:04 08/17/2019 08:50:47 Postmenopausal bleeding 16356070 N95.0 Smoker 34297386 F17.120 [id number] Crow Xander Macdonald (INCOMING INSPECTOR) [address] [place] [address] [id number] 0 07/01/2020 10:49:14 07/08/2020 18:38:45 Gynecologic examination 47215592 Z01.419 Z11.51 Screening mammography 24 207354 Z12.31 Last mammogram in 04/2019 was normal. No family history of breast cancer. Postmenopausal state 764 17413 Z78.0 Screening for malignant neoplasm of colon 864589193 Z12.11 Colonoscop y completed several years ago and normal. No family history of colorectal cancer. 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 Repeat 2024- Breast screening: Last mamm 07/23/20 BIRADS 2. Discussed SBE- Colon screening: Pt states that her last colonoscop y was last year with polyp removal. Her next colonoscop y was to be scheduled in 5 years.- Diet/exerc ise: Counseled regarding importance of physical activity, healthy diet and appropriat e calcium / vitamin D intake.- Return to clinic in six months Atrophic vaginitis 94442 000 N95.2 -Currently taking Osphena x 5-7 years with little relief from vaginal dryness and dyspareuni a-Pt declined pelvic exam today-Stop ped Osphena and started Premarin cream-Coun seled on using Replens vaginal moisturize r and coconut oil- Return to clinic in six months or sooner if needed [id number] BOO HOYT (INCOMING INSPECTOR) [address] [place] [address] [id number] 0 05/05/2022 15:59:53 05/07/2022 13:12:46 Atrophic vaginitis 09311068 N95.2 Recently started Premarin cream with improvemen t in vaginal dryness, continue as prescribed . RTC prn. Health Concerns Section Related Observation LastModified by Organization Detai ls LastModified Time None Recorded Concern Status LastModified by Organization Details LastModified Time None Recorded Advance Directives Directive N: Payers Encounter Date Sequence Insurance Name Policy Number Policy Wills Covered Member ID Wills Member ID Guarantor Name 03/22/2019 1 [facility] [id number] Ashley A Phegley [id number] Ashley Phegley 08/16/2019 1 [facility] [id number] Ashley A Phegley [id number] Ashley Phegley 07/01/2020 1 [facility] [id number] Ashley A Phegley [id number] Ashley Phegley 11/05/2021 1 [employer] [id number] Ashley A Phegley [id number] Ashley Phegley 05/05/2022 1 [facility] Ashley Phegley [id number] Ashley Phegley Notes Date Note Type Note Provider Name and Address Organization Details Recorded Time 03/22/2019 text/html Annual GYNReport ed bypatient.Urinary symptoms:No hematuria; No incontinence Vulva:No genital lesion Vagina:Normal vaginal discharge Breast:No breast pain; No breast lump; No nipple discharge Sexual complaints:No sexual complaints; No pain during intercourse; Normal libido Menopausal Symptoms:No menopausal symptoms;Inadequac y of lubrication of vaginal mucosa Psychological symptoms:No depression; No anxiety; No PMDDPelvic PainReported bypatient.Location :right; lower abdominal Onset/Timin-2 months; sudden; intermittent episodes lasting: (10-15 minutes) Duration:intermitt ent Quality:sharp; stabbing Severity:moderate Context:postmenopa usal Alleviating Factors:NSAIDS Aggravating Factors:none Associated Symptoms:no back pain; no chills; no constipation; no diarrhea; no vaginal discharge; no pain with urination; normal emptying of bladder; no feelings of urgency; no blood in the urine; normal libido; no fever; no nausea; no vomiting; no nocturia; no sexual abuse; no ectopic pregnancies; no endometriosis; no urinary frequency; no vaginal itching or irritation; no dyspareunia;abdomi nal pain 59yo 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 Patient states she has been experiencing vaginal dryness with some relief with OTC product and experiencing right lower quadrant x 1 month. 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 MICHAEL Huynh 08/16/2019 17:18:16 07/01/2020 text/html 60-year-old fembreanne del toro presents for annual WWE. MICHAEL Huynh 07/01/2020 16:44:42 07/01/2020 text/html Annual GYNReport ed bypatient.Menstrua l cycle:postmenopaus al Urinary symptoms:No hematuria; No incontinence Vulva:No genital lesion Vagina:Normal vaginal discharge Breast:No breast pain; No breast lump; No nipple discharge Sexual complaints:No sexual complaints; No pain during intercourse; Normal libido Menopausal Symptoms:No menopausal symptoms;Inadequac y of lubrication of vaginal mucosa(vaginal dryness) Psychological symptoms:No depression; No anxiety; No PMDD Crow Terrell [facility], [facility] 07/01/2020 16:44:42 11/05/2021 text/html Ashley Catalan is a 61 year-old with HTN, DM type 2, HLD (previous pt of Dr. Terrell) who presents for an annual well women exam with complaints of chronic vaginal dryness and dyspareunia. Pt states that she is currently taking Osphena for 5-7 years that provides little relief. She has tried Premarin very infrequently. Uses [place] Jelly during intercourse. She continues that she has suffered from both symptoms for years. Pt states that her last pap exam was ~2 years ago and was found normal. She needs to schedule for her mammogram to be done in [place]. Her last mammogram was last year. She had a prior abnormal mammogram that ended with a left breast biopsy diagnosis of a calcium deposit. Pt admits to have a colonoscopy last year with a polyp finding. Her next colonoscopy will be in five years. She is sexually active with . Denies discharge, abnormal bleeding, fevers, chills, weight loss, urinary symptoms, changes in BMs. Jonnathan Hester MD Attn: Accounting[address] [place], [address], [facility] 11/10/2021 17:15:47 05/05/2022 text/html 62yo F presents for atrophic vaginitis follow up. She was started on Premarin cream six months ago and notes improvement in vaginal dryness. She has no SE from medication. Denies abnormal bleeding, pelvic pain, urinary symptoms, vaginal itching, discharge, LE edema, CP, SOB, palpitations, headaches, vision changes. BOO HOYT Attn: [address]ing[address] [place], [address], [facility] 05/05/2022 16:45:37 OBGyn Episode No OBEpisode recorded.
--- OUTSIDE RECORDS SUMMARY | 2024-04-25 07:38 | XMS_ITS | CONTINUITY OF CARE DOCUMENT ---
Author Name lizz zamudio Address Unknown Organization [facility] Address [address] [place] [address] Phone [phone] Care Team Providers Care Scrap Handler Name Role Phone Jericho Sanz MD Unavailable [phone] KIAN ROBERT MD Unavailable [phone] KIAN ROBERT MD Unavailable [phone] INSURANCE PROVID[employer] Payer name Policy type / Coverage type [place] [employer] ID [employer] Other [id number]
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
--- OUTSIDE RECORDS SUMMARY | 2024-04-25 07:38 | XMS_ITS | Clinical Summary ---
Author Organization [facility] Address [address], [facility] [address] [place] [address] Phone Care Team Providers Care Termite Control Representative Name Role Phone Maninder Ann MD Primary Care Provider [phone] Toñito Sheriff MD Unavailable [phone] Allergies Active Allergy Reactions Criticality Noted Date Comments Amoxicillin Rash 03/22/2023 Empagliflozin Nausea 03/22/2023 Levofloxacin Nausea 03/22/2023 Medications glimepiride (AMARYL) 4 MG Tablet Take 4 mg by mouth 2 times daily. 3 Active metFORMIN (GLUCOPHAGE) 1000 MG Tablet Take 1,000 mg by mouth 2 times daily. 3 Active atorvastatin (LIPITOR) 20 MG Tablet Take 20 mg by mouth daily. 3 Active lisinopril-hyd roCHLOROthiazi de (PRINZIDE, ZESTORETIC) 20-12.5 MG Tablet Take 1 Tablet by mouth daily. 3 Active escitalopram (LEXAPRO) 10 MG Tablet Take 10 mg by mouth daily. 3 Active Trulicity 3 MG/0.5ML Solution Pen-injector INJECT 1 SYRINGE SUBCUTANEOUSLY ONCE A WEEK 3 Active temazepam (RESTORIL) 15 MG Capsule 3 Active Tradjenta 5 MG Tablet Take 5 mg by mouth daily. 3 Active amitriptyline (ELAVIL) 25 MG Tablet TAKE 1 TABLET BY MOUTH ONCE DAILY AT BEDTIME 3 Active FeroSul 325 (65 Fe) MG Tablet TAKE 1 TABLET BY MOUTH TWICE DAILY WITH VITAMIN C 3 Active clonazePAM (KlonoPIN) 0.5 MG Tablet Take 0.5 mg by mouth 3 times daily. Active Calcium Carbonate (CALCIUM 500 PO) Take by mouth. Activ e Collagen-Vitam in C-Biotin (COLLAGEN 1500/C PO) Take by mouth. Acti ve other by Other route. Vitafusion Active Estrogens Conjugated (PREMARIN PO) Take by mouth twice a week. Active Ascorbic Acid (VITAMIN C PO) Take by mouth. Active BIOTIN FORTE PO Take by mouth. Activ e valACYclovir (VALTREX) 1 GM Tablet Take 1 Tablet by mouth daily. Active simvastatin (ZOCOR) 20 MG Tablet Take 1 Tablet by mouth daily. Active Estrogens Conjugated (Premarin) 0.625 MG/GM Cream insert 0.5grams vaginally twice a WEEK Active Active Problems Problem Noted Date Diagnosed Date Iron deficiency anemia, unspecified 03/11/2023 Anemia due to unknown mechanism 03/08/2023 Immunizations Immunization Administration Dates Next Due Influenza Vaccine, Quadrivalent, PF 01/24/2020,0 11/19/2016 Influenza, Injectable, Mdck, quadrivalent,with Preservative 04/11/2018 Family History Medical History Relation Name Comments Stroke Brother Congestive Heart Failure Father Diabetes Father Heart Disease Father Hypertension Father Relation Name Status Comments Brother Father Social History Tobacco Use Types Packs/Day Years Used Date Smoking Tobacco: Former Cigarettes Q uit: 2016 Smokeless Tobacco: Never Tobacco Cessation:Counseling Given: Not Answered Alcohol Use Standard Drinks/Week Comments Never 0 (1 standard drink = 0.6 oz pur e alcohol) Comments Unknown Sex and Gender Information Value Date Recorded Sex Assigned at Not on file 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 Gender Identity Not on file Sexual Orientation Not on file Last Filed Vital Signs Vital Sign Reading Time Taken Comments Blood Pressure 138/80 07/21/2023 1:55 PM CDT Pulse 88 07/21/2023 1:55 PM CDT Temperature 36.6 C (97.8 F) 07/12/2023 9:25 AM CDT Respiratory Rate 18 07/12/2023 9:25 AM CDT Oxygen Saturation 95% 07/21/2023 1:55 PM CDT Inhaled Oxygen Concentration - - Weight 89.1 kg (196 lb 6.4 oz) 07/12/2023 9:25 A M CDT Height 157.5 cm (5' 2 ) 07/12/2023 9:25 AM CDT Body Mass Index 35.92 07/12/2023 9:25 AM CDT Plan of Treatment Upcoming Encounters Date Type Department Care Team (Late st Contact Info) Description 05/11/2024 1:15 PM CDT Office Visit [facility] [address] [address] Toñito Sheriff MD [address] [place] [address] Health Maintenance Due Date Last Done Comments Hepatitis C Virus (HCV) Screening 1960 Mammogram 1960 TdaP Immunization 1960 Pap Smear 01/31/1981 Cervical Cancer Screening (CCS) 01/31/1990 HPV/Cotest 01/31/1990 Colonoscopy 01/31/2005 Colorectal Cancer Screening 01/31/2005 Cologuard 01/31/2010 Immunochemical Fecal Occult Blood 01/31/2010 Pneumococcal Immunization (5 0+ years) (1 of 1 - PCV) 01/31/2010 Zoster Immunization (1 of 2) 01/31/2010 Influenza Immunization (#1) 10/31/202312/31, 04/11/2018, 11/19/2016 SARS-COV-2 Immunization ( - 2023-25 season) 2023 Respiratory Syncytial Virus (RSV) Immunization (Adult) (1 - 1-dose 75+ series) 01/31/2035 Hepatitis B Immunization Aged Out No longer eligible based on patient's age to complete this topic Meningococcal Immunization (ACWY) Aged Out No longer eligible b ased on patient's age to complete this topic Pneumococcal Immunization Combined Aged Out No longer eligible b ased on patient's age to complete this topic Rotavirus Immunization Aged Out No lo nger eligible based on patient's age to complete this topic Insurance [facility] Care Teams Termite Control Representative Relationship Specialty Start Date End Date Maninder Ann MD [address] [facility] [address] [place] [address] PCP - General Internal Medicine 01/18/23 Toñito Sheriff MD [address] [place] [address] Consulting Physician Oncology 01/18/23
== END 2024-04-25 07:33 | disposition home or self-care (01) ==
LOC: ANHIMG 07:34
PROVIDERS: PCP Internal Medicine; Visit Provider Internal Medicine
DX: Z12.31 Encounter for screening mammogram for malignant neoplasm of breast (principal)
CPT/HCPCS: 77063; 77067

== ENCOUNTER 2024-05-05 08:03 | Emergency (ER) | payer BC, SELFPAY ==
--- NOTE | 2024-05-05 08:07 | ED.URI ---
HPI - URI/Sore Throat General Chief Complaint: Upper Respiratory Infection Stated Complaint: cough,sore throat Time Seen by Provider: 05/05/24 08:06 Source: patient Mode of arrival: ambulatory Limitations: no limitations History of Present Illness HPI Narrative: Ashley is a 64-year-old female patient presenting to the clinic today with complaints of cough runny nose, nasal drainage, and sore throat x5 days. She reports no known fevers, chills, body aches. Has been coughing so hard that is making her ribs hurt. Is bringing up some white phlegm. She is a nonsmoker. She denies any shortness of breath. MD elicited complaint: sore throat and nasal congestion Related Data Home Medications ?Medication ?Instructions ?Recorded ?Confirmed ?Last Taken ?Type dulaglutide 1.5 mg/0.5 mL 1.5 mg subcut WEEKLY 02/05/20 05/05/24 Unknown History subcutaneous pen injector (Trulicity) escitalopram oxalate 10 mg tablet 10 mg PO DAILY 02/05/20 05/05/24 Unknown History glimepiride 4 mg tablet 4 mg PO QAM 02/05/20 05/05/24 Unknown History lisinopril 20 mg tablet 20 mg PO DAILY 02/05/20 05/05/24 Unknown History metformin 1,000 mg tablet 1,000 mg PO DAILY 02/05/20 05/05/24 Unknown History simvastatin 20 mg tablet 20 mg PO DAILY 02/05/20 05/05/24 Unknown History linagliptin 5 mg tablet (Tradjenta) 5 mg PO QAM 07/06/22 05/05/24 Unknown History temazepam 15 mg capsule 15 mg PO QHS 07/06/22 05/05/24 Unknown History amitriptyline 25 mg tablet 25 mg PO DAILY 05/05/24 05/05/24 Unknown History atorvastatin 20 mg tablet 20 mg PO QPM 05/05/24 05/05/24 Unknown History ferrous sulfate 325 mg (65 mg 325 mg PO BID 05/05/24 05/05/24 Unknown History iron) tablet (FeroSul) lisinopril 20 1 tablet PO DAILY 05/05/24 05/05/24 Unknown History mg-hydrochlorothiazide 12.5 mg tablet semaglutide 2 mg/dose (8 mg/3 mL) 2 mg subcut WEEKLY 05/05/24 05/05/24 Unknown History subcutaneous pen injector (Ozempic) Allergies Allergy/AdvReac Type Severity Reaction Status Date / Time Penicillins Allergy Mild Unknown Verified 05/05/24 08:08 amoxicillin Allergy Unknown Unknown Verified 05/05/24 08:08 Review of Systems Review of Systems: Pertinent positives per HPI. Patient denies any fever, chills, rash, headache, visual changes, dizziness, shortness of breath, chest pain, palpitations, nausea, vomiting, diarrhea, constipation, abdominal pain, or any urinary issues. [facility] Past Medical History Medical History Latent autoimmune diabetes in adults, managed as type 2 Abdominal pain Nausea Chronic cough Chest congestion Vision abnormalities De Quervain's disease (radial styloid tenosynovitis) Right wrist pain Anxiety Diabetes Diarrhea Constipation Stomach pain Hypertension High cholesterol Bleeding nose Vertigo Vision changes Dizziness Chronic headaches Right hip pain Family History Family History Father Diabetes mellitus Family history of cardiovascular disease Unknown HLD (hyperlipidemia) Arthritis Social History Social History Smoking status: Former smoker Smoking end date: 03/01/09 Alcohol intake: never Occupation/Education: occupation Additional occupation/education comments: 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 There is no relevant family history pertinent to the patient complaint. Exam Narrative: General: Well-developed, well nourished, in no apparent distress Head: Normocephalic, atraumatic Eyes: Pupils equally round and reactive to light bilaterally, EOM intact, sclera and conjunctive clear, no discharge, lids normal Ears: TMs intact and clear, ear canals clear, no drainage, grossly hearing normal. Nose: Nares patent, clear nasal discharge, no inflammation, no sinus tenderness. Mouth: Oral pharynx without lesions or masses, good dentition, MMM. Postnasal drip Neck: Supple, trachea midline, no enlargement of anterior or posterior cervical nodes, no thyroid masses or goiter palpable. Cardio: Regular rate and rhythm, s1 and s2 normal, no murmur appreciated. Resp: Clear to auscultation bilaterally, no rhonchi, rales, wheezing or rubs Course Course Emergency Course: Portions of this record may have been created with voice recognition software. Level of Care: Express Care Visit Vital Signs Vital signs: Vital signs reviewed MDM - URI/Sore Throat MDM Narrative Medical decision making narrative: At the time of visit patient is resting comfortably on the exam table. Patient appears to be nontoxic. Plan: Offer to do COVID testing on the patient she declined at this time. I suspect patient has URI with cough and congestion. Will place the patient on prednisone and Tessalon Perles. Supportive measures were discussed with the patient and they voiced understanding discharge instructions and agrees to treatment plan. Return precautions reviewed Differential Diagnosis Differential diagnosis: Likely upper respiratory infection, otitis media, sinusitis, viral infection, bronchitis, influenza, pharyngitis and other (COVID) Discharge Plan Discharge Clinical Impression: Upper respiratory infection with cough and congestion Patient Disposition: Home, Self-Care Condition: Stable Instructions: Antibiotic Form, Upper Respiratory Infection (ED) Additional Instructions: Take prescription medications only as prescribed-prednisone and Tessalon Perles The prednisone increase your blood sugars so keep it tight control on your blood sugars. Increase fluids and stay well hydrated Tylenol/motrin for pain/fever Flonase and OTC antihistamines as directed Vicks vapor rub to open sinuses Sinus rinses for congestion Cepacol spray, cough drops, throat lozenges, warm tea with honey/lemon, gargle salt water to soothe throat BRAT diet for diarrhea Clear liquids x 24 hours then advance as tolerated for nausea/vomiting Go to the ED if you develop a worsening in your condition- high fever not controlled by Tylenol or Motrin, dehydration, weakness, lethargy, shortness of breath, or chest pain. Follow up with your PCP in 3-5 days if symptoms persist. Patient Language: Danish Prescriptions: New benzonatate 200 mg capsule 200 mg PO TID 7 Days Qty: 21 0RF prednisone 20 mg tablet 40 mg PO DAILY 5 Days Qty: 10 0RF No Action amitriptyline 25 mg tablet 25 mg PO DAILY atorvastatin 20 mg tablet 20 mg PO QPM ferrous sulfate [FeroSul] 325 mg (65 mg iron) tablet 325 mg PO BID lisinopril-hydrochlorothiazide 20-12.5 mg tablet 1 tablet PO DAILY Ozempic 2 mg/dose (8 mg/3 mL) pen injector 2 mg SUBCUT WEEKLY Tradjenta 5 mg tablet 5 mg PO QAM temazepam 15 mg capsule 15 mg PO QHS glimepiride 4 mg tablet 4 mg PO QAM Rx Instructions: administer with breakfast metformin 1,000 mg tablet 1,000 mg PO DAILY lisinopril 20 mg tablet 20 mg PO DAILY simvastatin 20 mg tablet 20 mg PO DAILY escitalopram oxalate 10 mg tablet 10 mg PO DAILY Trulicity 1.5 mg/0.5 mL pen injector 1.5 mg subcut WEEKLY Follow-up/Referrals: Ann,Maninder Grullon MD [Primary Care Provider] - Stand Alone Forms: Work/School Release IP Time of Disposition: 08:18 Quality NIHSS Nursing Documentation ED NIHSS nursing documentation: reviewed/agree
[2024-05-05 08:14] VITALS: BP 146/76; PULSE 83; RESP 16; TEMP 36.1; O2SAT 98
== END 2024-05-05 08:25 | disposition home or self-care (01) ==
PROVIDERS: Emergency Provider Nurse Practitioner Family; PCP Internal Medicine
DX: J06.9 Acute upper respiratory infection, unspecified (principal); E11.9 Type 2 diabetes mellitus without complications; Z79.899 Other long term (current) drug therapy; Z87.891 Personal history of nicotine dependence
CPT/HCPCS: 99213; G0463

== ENCOUNTER 2024-06-27 07:34 | Outpatient (CLI) | payer BC, SELFPAY ==
--- NOTE | ~2024-06-27 | DEXA_ITS ---
Bone Density Report Name: THOMAS MCADAMS Age: 64 Sex: Female Ethnicity: White Date of : 1960 Indication: postmenopausal; screening for osteoporosis; Referring Provider: LINA*, KIAN Grullon Study: Bone densitometry was performed. Exam Date: June 27, 2024 Accession number: [id number] Bone Density: Region BMD T-score Z-score Classification AP Spine(L1-L4) 1.069 0.2 1.9 Normal Femoral Neck (Left) 0.769 -0.7 0.8 Normal Total Hip (Left) 0.980 0.3 1.5 Normal Femoral Neck (Right) 0.775 -0.7 0.8 Normal Total Hip (Right) 0.962 0.2 1.4 Normal Total Hip Mean 0.971 0.3 1.5 Normal World Health Organization criteria for BMD impression classify patients as: Normal (T-score at or above -1.0), Osteopenia (T-score between -1.0 and -2.5), or Osteoporosis (T-score at or below -2.5). 10-year Fracture Risk: FRAX not reported because: All T-scores for Spine Total, Hip Total, Femoral Neck at or above -1.0 Clinical Information Provided by Patient: Has used the following medications: HRT (i.e. estrogen/hormone therapy), Vitamin D, Calcium Patient maximum height was 62 Menopause Age: 50 No regular weight bearing exercise Drinks caffeinated beverages Onset of menses at age 9 Number of children 0 Missed period for more than 6 months in a row Impression: The patient has normal bone mass. Discussion: BONE DENSITY IS ABOVE THE MINIMUM DESIRABLE LEVEL AT ALL SKELETAL SITES TESTED. This patient?s bone mineral density is above the minimum desirable level (T-score -1.0 or better) at all sites measured. The patient should follow a healthful lifestyle (good nutrition with adequate calcium and vitamin D, and appropriate weight-bearing exercise). Follow-Up: Consider repeating this study in 5 years or sooner if there is some new clinical indication. Reported by: NÉSTOR on 06/27/2024 8:18:00 AM. Reviewed, dictated and finalized at location A.
--- OUTSIDE RECORDS SUMMARY | 2024-06-27 07:39 | XMS_ITS | Clinical Summary ---
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
--- OUTSIDE RECORDS SUMMARY | 2024-06-27 07:39 | XMS_ITS | Referral Summary ---
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
--- OUTSIDE RECORDS SUMMARY | 2024-06-27 07:40 | XMS_ITS | CONTINUITY OF CARE DOCUMENT ---
Author Name lizz zamudio Address Unknown Organization [facility] Address [address] [facility] [address] [place] [address] Phone [phone] Care Team Providers Care Inventory Representative Name Role Phone Jericho Sanz MD Unavailable [phone] KIAN ROBERT MD Unavailable KIAN ROBERT MD Unavailable [phone] INSURANCE PROVIDERS Payer name Policy type / Coverage type [place] red libertarian [place] U[employer] [id number]
--- OUTSIDE RECORDS SUMMARY | 2024-06-27 07:40 | XMS_ITS | Clinical Summary ---
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 Gender Identity Not on file Sexual Orientation [...] 07/12/2023 9:25 AM CDT Plan of Treatment Health Maintenance Due [...] (#1) 10/31/202312/31, 04/11/2018, 11/19/2016 SARS-COV-2 Immunization ( season) 2023 Respiratory Syncytial Virus (RSV) Immunization [...] patient's age to complete this topic Insurance [facility] Care Teams Shellfish Processing Laborer Relationship Specialty Start Date End Date Maninder Ann MD [address] [facility] [address] [place] [address] PCP - General Internal Medicine 01/18/23 Toñito Sheriff MD [address] [place] [phone] Consulting Physician Oncology 01/18/23
--- OUTSIDE RECORDS SUMMARY | 2024-06-27 07:40 | XMS_ITS | Data Portability ---
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 2019 020 [facility], [address], [place], [address], 0 14:09:46 urinalys is, dipstick 2019 020 cherrie In-Office Order, Internal Use Only DO Not Attach Compendium DO Not Attach Compendium, Do Not Delete/merge, [id number] 10:50:50 culture, urine 2019 020 [facility], [address], [address], [place], [address], 0 06:23:17 bacteria l vaginosi s panel, vaginal 2019 020 [facility] (Centralized Electronic Ordering - All Locations), Patient Can Go To The Location Of Their Choice, [facility] 0 07:07:07 culture, vaginal/ rectal, streptoc occus group B 2019 020 [facility] (Centralized Electronic Ordering - All Locations), Patient Can Go To The Location Of Their Choice, [id number] 0 07:07:07 Referral None recorded . Procedures None recorded . Surgeries None recorded . Imaging MAMMO, screenin g, bilatera l 2021 022 [facility], [address], [place], [address], 3 10:48:15 MAMMO, screenin g, bilatera l 2020 021 [facility], [address], [place], [address], 1 16:56:32 DEXA 2020 021 [facility], [address], [place], [address], 1 11:42:40 US, pelvis, transabd ominal + transvag inal 2019 020 [facility], [address], [place], [address], 0 08:34:34 MAMMO, screenin g, bilatera l 2019 020 [facility], [address], [place], [address], 0 12:05:01 DEXA 2019 020 [facility], [address], [place], [address], 0 14:17:57 Medication Orders Premarin 0.625 mg/gram vaginal cream 2022 023 [facility], [address] [place], [address], 3 16:28:57 Premarin 0.625 mg/gram vaginal cream 2021 022 [facility], [address] [place] [address], [id number], 2 12:21:30 multivit kuo tablet 2020 021 [facility], [address] [place], [address], 2 11:19:38 Calcium with Vitamin D 600 mg-10 mcg (400 unit) tablet 2020 021 [facility], [address] [place], [address], 2 11:21:03 Osphena 60 mg tablet [address] [facility], [address] [place], [address], 2 12:17:27 Premarin 0.625 mg/gram vaginal cream 2020 021 [facility], [address] [place] [address], [id number], 1 12:11:29 Osphena 60 mg tablet 2019 020 [email or web address] [facility], [address] [facility] [facility], [place], [address], 12:17:27 Patient TargetsNo targets recorded. Patient Instructions Encounter Date Encounter Id Patient Instructions Last Modified By Organization Details Last Modified Time 03/22/2019 [id number] mammogram: about this test mwasserman Not available 03/22/2019 10:50:50 mammogram: about this test mwasserman Not available 03/22/2019 10:50:49 mammogram screening patient instructions mwasserman Not available 03/22/2019 10:50:49 atrophic vaginitis: care instructions mwasserman Not available 03/22/2019 10:50:50 08/16/2019 [id number] Quitting Tobacco: Care Instructions mwasserman Not available 08/16/2019 17:17:55 vaginal bleeding after menopause: care instructions mwasserman Not available 08/16/2019 17:11:55 07/01/2020 [id number] mammogram: about this test mwasserman Not available 07/01/2020 11:52:55 mammogram screening patient instructions mwasserman Not available 07/01/2020 11:52:55 A healthy lifestyle: care instructions mwasserman Not available 07/01/2020 12:17:11 11/05/2021 [id number] learning about breast cancer screening Not available 11/05/2021 11:55:[address] Kacie mojica Not available 11/10/2021 17:15:43 Reason for Referral None Reported. Results Created Date Observation Date Name Description Value Unit Range Abnormal Flag Note LastModifiedBy Organization Detail LastModifiedTime 03/22/19 20 03/24/2019 cultu re, urine urine culture, routine Final report abnormal Not Available [facility] ([facility]) [address], [place], [address], 03/24/2019 06:23:17 03/22/19 20 03/24/2019 cultu re, [...] other beta- lacta m agent s appro constance by the FDA for treat ment of beta- hemol ytic strep tococ sylvester infec tions need not be perfo rmed routi layla becau se nonsu scept ible isola angelique are extre darcy rare in any beta- hemol ytic strep tococ cus and have not been repor julia for Strep tococ cus pyoge chang (grou p A). (CLSI ) Not Available [facility] ([facility]) [address], [place], [address], 03/24/2019 06:23:17 03/22/19 20 03/23/2019 pap, IG + HPV, cervi sylvester HPV aptima Negati ve negati ve This nucle ic acid ampli ficat ion test detec ts fourt een high- risk HPV types (16,1 8,31, 33,35 ,39,4 5,51, 52,56 ,58,5 9,66, 68) witho ut diffe renti ation . Not Available [facility] ([facility]) [address], [place], [address], 03/24/2019 14:09:46 03/22/19 20 03/24/2019 pap, IG + HPV, cervi sylvester diagnosis: Commen t NEGAT YANY FOR INTRA EPITH ELIAL LESMAHAD Rankin OR ISSAC MARIN . Not Available [facility] ([facility]) [address] [place], [address], 03/24/2019 14:09:46 03/22/1903/24/2019 pap, IG + HPV, cervi sylvester specimen adequacy: Commen t Satis facto ry for evalu ation . Endoc ervic al and/o r squam ous metap lasti c cells (endo cervi sylvester compo nent) are prese nt. Areas of parti ally obscu ring infla mmato ry exuda te are prese nt. Not Available [facility] ([facility]) [address], [place], [address], 03/24/2019 14:09:46 03/22/19 20 03/24/2019 pap, IG + HPV, cervi sylvester clinician provided ICD10: Adrián elmore Z01.4 19 Z11.5 1 Not Available [facility] ([facility]) [address], [place], [address], 03/24/2019 14:09:46 03/22/19 20 03/24/2019 pap, IG + HPV, cervi sylvester performed by: Pamela Peterson (ASCP ) Not Available [facility] ([facility]) [address], [place], [address], 03/24/2019 14:09:46 03/22/19 20 03/24/2019 pap, IG + HPV, cervi sylvester . . Not Available [facility] ([facility]) [address] [place], [address], 03/24/2019 14:09:46 03/22/19 20 03/24/2019 pap, IG [...] ts do occur . Not Available [facility] ([facility]) [address], [place], [address], 03/24/2019 14:09:46 03/22/19 20 03/24/2019 pap, IG + HPV, cervi sylvester test methodology: Adrián elmore This liqui d based ThinP rep(R ) pap test was scree chaim with the use of an image guide d tiara m. Not Available [facility] ([facility]) [address] [place], [address], 03/24/2019 14:09:46 03/22/19 20 03/26/2019 bacte rial vagin osis panel , vagin al trich vag by JOVANNY Negati ve negati ve Not Available [facility] ([facility]) [address] [place], [address], 03/27/2019 07:07:07 03/22/19 20 03/26/2019 bacte rial vagin osis panel , vagin al chlamydia trachomatis, JOVANNY Negati ve negati ve Not Available [facility] ([facility]) [address], [place], [address], 03/27/2019 07:07:07 03/22/19 20 03/26/2019 bacte rial vagin osis panel , vagin al neisseria gonorrhoeae, JOVANNY Negati ve negati ve Not Available [facility] ([facility]) [address] [place], [address], 03/27/2019 07:07:07 03/22/19 20 03/26/2019 bacte rial vagin osis panel , vagin al hsv 1 JOVANNY Negati ve negati ve Not Available [facility] ([facility]) [address] [place], [address], 03/27/2019 07:07:07 03/22/19 20 03/26/2019 bacte rial vagin osis panel , vagin al hsv 2 JOVANNY Negati ve negati ve Not Available [facility] ([facility]) [address] [place], [address], 03/27/2019 07:07:07 03/22/19 20 03/27/2019 bacte rial vagin osis panel , vagin al atopobium vaginae Low - 0 score Not Available [facility] ([facility]) [address], [place], [address], 03/27/2019 07:07:07 03/22/19 20 03/27/2019 bacte rial vagin osis panel , vagin al bvab 2 Low - 0 score Not Available [facility] ([facility]) [address], [place], [address], 03/27/2019 07:07:07 03/22/19 20 03/27/2019 bacte rial [...] is not neces pierce. Not Available [facility] ([facility]) [address], [place], [address], 03/27/2019 07:07:07 03/22/1903/27/2019 bacte rial vagin osis panel , vagin al sugar albicans, JOVANNY Negati ve negati ve Not Available [facility] ([facility]) [address] [place], [address], 03/27/2019 07:07:07 03/22/19 20 03/27/2019 bacte rial vagin osis panel , vagin al sugar glabrata, JOVANNY Negati ve negati ve Not Available [facility] ([facility]) [address], [place], [address], 03/27/2019 07:07:07 03/22/19 20 03/24/2019 cultu re, vagin al/re ctal, strep tococ cus group B strep gp B JOVANNY Positi ve negati ve abnormal Cente rs for Disea se Contr ol and Preve ntion ([facility]) and Ameri can Congr ess of Obste trici ans and Gynec ologi sts (ACOG ) guide lines for preve ntion of perin atal group B strep tococ sylvester (GBS) disea se speci fy co-co llect ion of a vagin al and recta l swab speci men to maxim ize sensi tivit y of GBS detec tion. Per the [facility] and ACOG, swabb ing both the lower [...] n is noted . Not Available [facility] ([facility]) [address], [place], [address], 03/27/2019 07:07:07 03/22/19 20 03/22/2019 urina lysis , dipst ick Leukocytes Trace Not Available In-Offi ce Order Internal Use Only DO Not Attach Compendium DO Not Attach Compendium, Do Not Delete/merge, [id number] 03/22/2019 10:20:43 03/22/19 20 03/22/2019 urina lysis [...] 03/22/2019 urina lysis , dipst ick Specific [place] 1.015 Not Available In-Off ice Order Internal [...] DO Not Attach Compendium, Do Not Delete/merge, [id number] 03/22/2019 10:20:43 07/11/19 21 07/10/2020 nonin vasiv [...] of 10,00 0 indiv idual s at [facility] risk for color ectal cance r who were scree chaim with both Colog uard and colon oscop y. (Tabl e 3, Imper randall T. et al, N Engl J Med 2014; 370(1 4):12 86-12 97.) The michael l value (refe rence range ) for this assay is negat yany. TEST TYPE: Frederika site algor ithmi c nelly sis of [...] years or older , who are at [facility] for color ectal cance r (CRC) . Colog uard has been appro constance for use by the U.[place]. FDA. Colog uard may produ ce a false negat yany or false posit yany resul t. A negat yany Colog uard [...] , singl e point in time) of [facility] adult s aged 50-84 . Colog uard perfo rmanc e in patie nts ages 45 to 49 years was estim ated by sub-g roup nelly sis of near- age group s. Colog uard perfo rmanc e data in a 10,00 0 [facility] nt pivot al study using colon oscop y as the refer ence metho d can be acces sed at the [employer] wing locat ion: www.e xactl abs.c om/re sults . Addit ional descr iptio n of the Colog uard test proce ss, warni ngs and preca ution s can be found at www.c [address].co m. Rx only. Not Available [employer] (Cologuard Orders Only) [address], [place], [address], 07/17/2020 01:14:42 05/08/19 20 05/06/2019 MAMMO , scree bright, bilat eral No observ ation record ed. LALI [facility] [address], [place], [address], 05/17/2019 20:26:22 05/12/19 20 05/06/2019 DEXA No observ ation record ed. robert [facility] [address], [place], [address], 09/08/2019 10:12:05 08/30/19 20 08/29/2019 US, pelvi s, trans abdom inal + trans vagin al No observ ation record ed. robert [facility] [address], [place], [address], 09/08/2019 14:35:59 11/03/19 20 10/30/2019 US, pelvi s No observ ation record ed. [email or web address] Not Available 11/05 09:50:36 07/24/19 21 07/23/2020 MAMMO , scree bright, bilat eral No observ ation record ed. [email or web address] [facility] [address], [place], [address], 11/05/2021 11:31:12 07/24/19 21 07/23/2020 MAMMO , scree bright, bilat eral No observ ation record ed. [email or web address] [facility] [address], [place], [address], 11/05/2021 11:31:12 05/15/19 23 05/13/2022 MAMMO , scree bright, bilat eral No observ ation record ed. [email or web address] [facility] [address], [place], [address], 05/20/2022 15:49:32 Result Notes None recorded. 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 Procedures Surgical History Date Name Laterality Status Provider Name and Address Organization Details Recorded Time 1 Date of Last Mammogram completed Nila Phelps MA [facility] 11/05/2021 11:16:57 0 Most Recent Mammogram completed Nila Phelps MA [facility] 08/16/2019 17:06:24 0 Date of Last Pap Smear completed Nila Phelps MA [facility] 08/16/2019 17:06:11 Dilation and Curettage completed Nadira Costa MA [facility] 09/12/2015 15:16:42 Dilation and Curettage completed Nadira Costa MA [facility] 09/12/2015 15:16:42 Imaging Results Imaging Date Name Status LastModified by Organization Details LastModified Time 05/06/2019 MAMMO, screening, bilateral completed LALI [facility] [address], [place], [address], 05/17/2019 20:26:22 05/06/2019 DEXA completed robert [facility] [address], [place], [address], 09/08/2019 10:12:05 08/29/2019 US, pelvis, transabdominal + [facility] [address], [place], [address], 09/08/2019 14:35:59 10/30/2019 US, pelvis completed Information no t available 11/06/2019 09:50:36 07/23/2020 MAMMO, screening, bilateral completed [email or web address] [facility] [address], [place], [address], 11/05/2021 11:31:12 07/23/2020 MAMMO, screening, bilateral completed [email or web address] [facility] [address], [place], [address], 11/05/2021 11:31:12 05/13/2022 MAMMO, screening, bilateral completed [email or web address] [facility] [address], [place], [address], 05/20/2022 15:49:32 Procedure Notes None recorded. Medical Equipment None Reported. Allergies Allergen ID Allergen Name Allergen Category Reaction Reaction Severity Criticality Documentation Date Start Date Code Code System Note Provider Name and Address Organization Details Recorded Time 08625 amoxicill in medicatio n itching moderate Not [...] completed Not Available Not Available Not Available osphena 60 mg tabs 11/05 completed [...] Not Available Not Available N ot Available multivitami n tablet Take 1 tablet [...] Address Organization Details Last Updated DateTime 03/22/2019 68749.29 g 130 mm[Hg] 74 mm[Hg] Glen Benavides MA [facility] 03/22/2019 10:20:12 Date Recorded Body height Body mass index (BMI) Body weight Provider Name and Address Organization Details Last Updated DateTime 08/16/2019 157.48 cm 34.2 kg/m2 04927.77 g Nila Phelps MA [facility] 08/16/2019 17:02:26 Date Recorded Body height Body mass index (BMI) Body weight Systolic blood pressure Diastolic blood pressure Provider Name and Address Organization Details Last Updated DateTime 07/01/2020 157.48 cm 34.8 kg/m2 17042.55 g 120 mm[Hg] 76 mm[Hg] Jeanine Burns MA [facility] 1 11:28:36 Date Recorded Body weight Body mass index (BMI) Body height Systolic blood pressure Diastolic blood pressure Provider Name and Address Organization Details Last Updated DateTime 11/05/2021 91675.96 g 35.1 kg/m2 156.21 cm 118 mm[Hg] 66 mm[Hg] Nila Phelps MA [facility] 2 11:23:46 Date Recorded Body height Body mass index (BMI) Body weight Systolic blood pressure Diastolic blood pressure Provider Name and Address Organization Details Last Updated DateTime 05/05/2022 156.21 cm 35.9 kg/m2 90818.33 g 126 mm[Hg] 74 mm[Hg] Nila Phelps MA [facility] 3 16:14:19 Social History Question Answer Notes LastModified by Organizat ion Details LastModified Time Tobacco Smoking Status Former Smoker Nadira Costa MA null, [facility] 09/12/2015 15:16:42 Do You Have An Advance Directive? [email or web address] Information not available 09/12/2015 What Is Your Level Of Alcohol Consumption? None [email or web address] Information not available 09/12/2015 Is Blood Transfusion Acceptable In An Emergency? Yes [facility] Information not available 09/12/2015 What Is Your Level Of Caffeine Consumption? Heavy Mountain Dew [email or web address] Information not available 07/01/2020 How Much Tobacco [...] Or The Highest Degree You Have Received? [id number] Information not available 07/01/2020 What Is Your [...] available 09/12/2015 15:16:42 Medical History Condition Response Diabetes Y Muscle, Joint, or Bone Problems Y High Blood Pressure Y Seizures/Epilepsy Acid Reflux (GERD) Y Thyroid Problems N Kidney or Bladder Problems N GI Problems Y High Cholesterol Y Hepatitis N Heart Disease N Headaches/Migraines N Osteoporosis N Gynecological History Statement/Question Response [...] SNOMED-CT Code Diagnosis ICD10 Code Diagnosis Note [id number] WENDY Hope (Adult Med) [address] [place] [address] 0 09/05/2015 10:54:26 09/05/2015 14:13:23 Atrophic vaginitis 55841476 N95.2 Will re-prescri be medication that Dr. Terrell had prescribed Advised to f/u with Dr. Terrell in 6-8 weeks to discuss if medication is working Discussed risk of unopposed estrogen with patient [id number] Gaurav Macdonald (D[employer] RE[employer] OPERATOR HELPER) [address] [place] [address] 0 09/12/2015 14:50:07 09/16/2015 11:10:34 Atrophic vaginitis 28253906 N95.2 Patient was prescribed Premarin and Osphena by Gracy Hurley. Patient has already had them filled. Advise starting the medication s as prescribed . Follow up in 1 month. [id number] Gaurav Macdonald (DYE REEL OPERATOR HELPER) [address] [place] [address] 0 10/25/2015 11:12:26 10/25/2015 14:21:52 Atrophic vaginitis 36979980 N95.2 Patient was prescribed Premarin and Osphena by Gracy Hurley. Patient has already had them filled. Advise starting the medication s as prescribed . Follow up in 1 month. [id number] Crow Macdonald [facility] ([employer] RE[employer] OPERATOR HELPER) [address] [place] [phone] 03/22/2019 09:34:56 03/23/2019 11:16:11 Gynecologic examination 59882371 Z01.419 Atrophic vaginitis 77210 000 N95.2 Screening for osteoporosis 330968018 Z13.820 Screening mammography 24 151113 Z12.31 Exposure t o sexually transmissible disorder 969994218 Z20.2 [id number] Crow Macdonald ([employer] OPER[employer]) [address] [place] [phone] 08/16/2019 09:54:04 08/17/2019 08:50:47 Postmenopausal bleeding 70631647 N95.0 Smoker 40440023 F17.041 [id number] Crow Xander Macdonald (DYE REEL OPERATOR HELPER) [address] [place] [phone] 07/01/2020 10:49:14 07/08/2020 18:38:45 Gynecologic examination 74231301 Z01.419 Z11.51 Screening mammography 24 022700 Z12.31 Last mammogram in 04/2019 was normal. No family history of breast cancer. Postmenopausal state 764 63714 Z78.0 Screening for malignant neoplasm of colon 644931711 Z12.11 Colonoscop y completed several years ago and normal. No family history of colorectal cancer. Screening for osteoporosis 119042583 Z13.820 Atrophic vulva 252798069 N90.5 Obesity 772682902 E66.9 [id number] MD Torres Gates (DYE RE[employer] OPERATOR HELPER) [address] [place] [id number] 11/05/2021 11:05:46 11/06/2021 14:58:04 Screening for malignant neoplasm of breast 962649114 Z12.31 -Annual screening order provided Well woman monitoring check done 827053112 Z76.89 61 y/o F with PMHx of HTN, DM type 2, HLD presents to establish obstetrics gyn physician care with complaints of vaginal dryness and [...] to clinic in six months Atrophic vaginitis 10293 000 N95.2 -Currently taking Osphena x 5-7 years with little relief from vaginal dryness and dyspareuni a-Pt declined pelvic exam today-Stop ped Osphena and started Premarin cream-Coun seled on using Replens vaginal moisturize r and coconut oil- Return to clinic in six months or sooner if needed [id number] BOO HOYT (DYE REEL OPERATOR HELPER) [address] [place] [phone] 05/05/2022 15:59:53 05/07/2022 13:12:46 Atrophic vaginitis 85524127 N95.2 Recently started Premarin cream with improvemen [...] Wills Member ID Guarantor Name 03/22/2019 1 [facility] [id number] Ashley A Phegley [id number] Ashley Phegley 08/16/2019 1 [facility] [id number] Ashley A Phegley [id number] Ashley Phegley 07/01/2020 1 [facility] [id number] Ashley A Phegley [id number] Ashley Phegley 11/05/2021 1 [employer] [id number] Ashley A Phegley [id number] Ashley Phegley 05/05/2022 1 [facility] Ashley Phegley [id number] Ashley Phegley Notes Date Note Type Note [...] dyspareunia;abdomi nal pain 59yo presenting for annual obstetrics gyn physician appointment. 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 MICHAEL Huynh 08/16/2019 17:18:16 07/01/2020 text/html 60-year-old fema le presents for annual WWE. MICHAEL Huynh 07/01/2020 [...] depression; No anxiety; No PMDD [facility], [facility] 07/01/2020 16:44:42 11/05/2021 text/html Ashley Catalan [...] for her mammogram to be done in [place]. Her last mammogram was last year. She [...] BMs. Jonnathan Hester MD Attn: Accounting[address] [place], [address], [facility] 11/10/2021 17:15:47 05/05/2022 text/html 62yo F presents for atrophic vaginitis follow up. She was started on Premarin cream six months ago and notes improvement in vaginal dryness. She has no SE from medication. Denies abnormal bleeding, pelvic pain, urinary symptoms, vaginal itching, discharge, LE edema, CP, SOB, palpitations, headaches, vision changes. BOO HOYT Attn: Accounting[address] [place], [address], [facility] 05/05/2022 16:45:37 OBGyn Episode No OBEpisode recorded.
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
== END 2024-06-27 07:35 | disposition home or self-care (01) ==
PROVIDERS: PCP Internal Medicine; Visit Provider Internal Medicine
DX: M81.0 Age-related osteoporosis without current pathological fracture (principal)
CPT/HCPCS: 77080